=== PATIENT | male | born 1990 | race Caucasian/White ===

== ENCOUNTER 2020-10-10 21:25 | Emergency (ER) | payer SELFPAY ==
[2020-10-10 22:14] VITALS: O2SAT 99
[2020-10-10] MEDS ORDERED: predniSONE 20 MG TAB PO ONE (23:11)
[2020-10-10] MEDS ORDERED: AZITHROMYCIN 250 MG TAB PO ONE (23:11)
--- NOTE | 2020-10-10 23:11 | RAD ---
EXAM: Chest,1 View HISTORY: cough 3 days COMPARISON: Chest 2 Views AP PA Lateral 04/29/2015 TECHNIQUE: Chest 1 View AP FINDINGS: Trachea midline. Heart size and pulmonary vessels within normal limits. Lungs clear with no evidence of mass, consolidation, or significant pulmonary edema. No significant pleural effusion or pneumothorax. Bones unremarkable. IMPRESSION: Normal chest radiograph. Electronically signed by: South Guevara MD 10/10/2020 11:10 PM CAP BLOCKER
--- NOTE | 2020-10-10 23:16 | ED.PDOC ---
History of Present Illness - General Chief Complaint: Respiratory Problem Stated Complaint: productive cough, congestion, stuffy nose Time Seen by Provider: 10/10/20 22:11 Source: patient Exam Limitations: no limitations - History of Present Illness Initial Comments: The patient is a 29-year-old male presenting secondary to 3 days of cough. He is coughed several times until he is almost thrown up. Cough seems to be worse after position changes. No real shortness of breath at baseline. Mildly productive cough. No definite fever. Mild sore throat. Minimal runny nose. No nausea vomiting or diarrhea. Timing/Duration: other - 3 days Severity: moderate Improving Factors: nothing Worsening Factors: nothing Associated Symptoms: cough, malaise Allergies/Adverse Reactions: Allergies NO KNOWN ALLERGY Allergy (Verified 10/10/20 22:14) Home Medications: Ambulatory Orders Azithromycin 500 mg PO DAILY #5 tab 10/10/20 predniSONE [Prednisone] 20 mg PO DAILY #5 tab 10/10/20 Review of Systems - Review of Systems Constitutional: States: no symptoms reported EENTM: States: no symptoms reported Respiratory: States: cough Cardiology: States: no symptoms reported Gastrointestinal/Abdominal: States: no symptoms reported Genitourinary: States: no symptoms reported Musculoskeletal: States: no symptoms reported Skin: States: no symptoms reported Neurological: States: no symptoms reported Endocrine: States: no symptoms reported All other Systems: No Change from Baseline Past Medical History (General) - Patient Medical History Hx Seizures: No Hx Stroke: No Hx Dementia: No Hx Asthma: No Hx of COPD: No Hx Cardiac Disorders: No Hx Congestive Heart Failure: No Hx Pacemaker: No Hx Hypertension: No Hx Thyroid Disease: No Hx Diabetes: No Hx Gastroesophageal Reflux: No Hx Renal Disease: No Hx Cancer: No Hx of HIV: No Hx Hepatitis C: No Hx MRSA: No Surgical History: noncontributory - Vaccination History Hx Tetanus, Diphtheria Vaccination: Yes - 2015 Hx Influenza Vaccination: No Hx Pneumococcal Vaccination: No - Social History Hx Tobacco Use: No Hx Chewing Tobacco Use: No Hx Alcohol Use: Yes - occ Hx Substance Use: No Hx Substance Use Treatment: No Hx Depression: No Hx Physical Abuse: No Hx Emotional Abuse: No Hx Suspected Abuse: No - Female History Patient : No Family Medical History - Family History Mother Living Status: Still Living Hx Family;Other: cancer, diabetes grandparents Physical Exam - Physical Exam General Appearance: Alert, Comfortable, No apparent distress Eye Exam: bilateral normal Ears, Nose, Throat: hearing grossly normal, normal pharynx Neck: full range of motion, supple Respiratory: no accessory muscle use, rhonchi, wheezing - Mild Cardiovascular/Chest: normal peripheral pulses, regular rate, rhythm, no edema Peripheral Pulses: radial,right: 2+, radial,left: 2+ Rectal Exam: deferred Extremity: normal range of motion, no pedal edema, no calf tenderness, normal capillary refill 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 The patient does have some mild abnormal lung sounds but the chest x-ray is clear. He is going to be placed on a azithromycin and prednisone for the next 5 days. He is tested negative for coronavirus here today. ER warnings are given. Keep routine follow-up with primary care doctor. leslie dixon [phone] - Results/Orders Results/Orders: Laboratory Tests 10/10/20 22:00 Group A Strep Rapid Negative Rapid coronavirus is negative. Chest x-ray is negative. Departure - Departure Clinical Impression: Acute bronchitis Qualifiers: Bronchitis organism: unspecified organism Qualified Code(s): J20.9 - Acute bronchitis, unspecified Disposition: Discharge to Home or Self Care Condition: Fair Departure Forms: ED Discharge - Pt. Copy, Patient Portal Self Enrollment Diet: regular diet Activity: increase activity as tolerated Prescriptions: Azithromycin 500 mg PO DAILY #5 tab predniSONE [Prednisone] 20 mg PO DAILY #5 tab Home Medications: Ambulatory Orders Azithromycin 500 mg PO DAILY #5 tab 10/10/20 predniSONE [Prednisone] 20 mg PO DAILY #5 tab 10/10/20 Additional Instructions: The patient is a 29-year-old male presented emergency room secondary to a cough for the last 3 days. The patient does have some mild abnormal lung sounds but the chest x-ray is clear. He is going to be placed on a azithromycin and prednisone for the next 5 days. He is tested negative for coronavirus here today. ER warnings are given. Keep routine follow-up with primary care doctor.
[2020-10-10 23:29] VITALS: BP 126/89; TEMP 97.3
== END 2020-10-10 23:34 | disposition home or self-care (01) ==
LOC: ER 21:25
DX: J20.9 Acute bronchitis, unspecified (principal); Z20.828 Contact with and (suspected) exposure to other viral communicable diseases
CPT/HCPCS: 71045; 87070; 87635; 87880; J7512; Q0144